=== PATIENT | female | born 1960 | race Caucasian/White ===

== ENCOUNTER 2022-02-21 09:14 | Outpatient (CLI) | payer OTHER, SELFPAY ==
[2022-02-21 12:40] LABS: Albumin* 4.5 g/dL (3.3-5.0); Chloride* 102 mmol/L (96-114)
[2022-02-21 12:41] LABS: Potassium* 4.4 mmol/L (3.6-5.1); Sodium* 138 mmol/L (135-149)
[2022-02-21 12:43] LABS: Alkaline Phosphatase* 102 U/L (40-150); Aspartate Amino Transferase* 20 U/L (12-35); Bilirubin Total* 0.4 mg/dL (0.1-1.5); Blood Urea Nitrogen* 18 mg/dL (7-30); Carbon Dioxide* 26 mmol/L (20-32); Cholesterol* 154 mg/dL (90-199); Creatinine* 0.7 mg/dL (0.5-1.5); Estimated Glomerular Filt Rate 100 ml/min; Glucose* 113 mg/dL (60-115); Total Protein* 7.7 g/dL (6.0-8.3); Triglycerides* 223 mg/dL (40-149)
[2022-02-21 12:44] LABS: Alanine Aminotransferase* 17 U/L (4-35); Calcium* 9.8 mg/dL (8.4-10.6); HDL Cholesterol* 49 mg/dL (>=50); LDL Cholesterol Calculated 60 mg/dL (<100)
[2022-02-21 12:57] LABS: Creatinine Urine 46.5 mg/dL
[2022-02-21 13:00] LABS: Microalbumin Creatinine Ratio 20 mg/g (0-30); Microalbumin Urine < 1 mg/dL
== END 2022-02-21 09:15 | disposition home or self-care (01) ==
PROVIDERS: PCP Physician Assistant Medical; Visit Provider Family Medicine
DX: Z01.419 Encounter for gynecological examination (general) (routine) without abnormal findings (principal); E66.01 Morbid (severe) obesity due to excess calories; E78.5 Hyperlipidemia, unspecified; I10 Essential (primary) hypertension; I25.10 Atherosclerotic heart disease of native coronary artery without angina pectoris; Z13.1 Encounter for screening for diabetes mellitus; Z68.41 Body mass index [BMI] 40.0-44.9, adult
CPT/HCPCS: 80053; 80061; 82043; 82570

== ENCOUNTER 2022-12-03 08:31 | Outpatient (CLI) | payer OTHER, SELFPAY | END 2022-12-03 08:32 | disposition home or self-care (01) | LOC: NFLDREF 12-04 18:48 | PROVIDERS: PCP Physician Assistant Medical; Referring Provider Physician Assistant Medical; Visit Provider Family Medicine | DX: E66.01 Morbid (severe) obesity due to excess calories (principal); E78.5 Hyperlipidemia, unspecified; I10 Essential (primary) hypertension; R73.01 Impaired fasting glucose; I25.10 Atherosclerotic heart disease of native coronary artery without angina pectoris; K76.9 Liver disease, unspecified; D37.3 Neoplasm of uncertain behavior of appendix; Z68.41 Body mass index [BMI] 40.0-44.9, adult | CPT/HCPCS: 80053; 80061; 82043; 82378; 82570; 82607 ==

== ENCOUNTER 2023-01-02 13:49 | Outpatient (CLI) | payer OTHER, SELFPAY | END 2023-01-02 13:50 | disposition home or self-care (01) | LOC: RAD 13:50 | PROVIDERS: PCP Family Medicine; Visit Provider Family Medicine | DX: R01.1 Cardiac murmur, unspecified (principal); I51.7 Cardiomegaly | CPT/HCPCS: 93306 ==

== ENCOUNTER 2023-02-26 11:17 | Outpatient (CLI) | payer OTHER, SELFPAY ==
--- NOTE | 2023-02-26 11:30 | CRLHL7_ITS ---
For Patients: As a result of the Century Cures Act, medical imaging exams and procedure reports are released immediately into your electronic medical record. You may view this report before your referring provider. If you have questions, please contact your health care provider. BILATERAL SCREENING MAMMOGRAM WITH COMPUTER-AIDED DETECTION TECHNIQUE: CC and MLO views were obtained. These mammographic images have been obtained using full-field digital technique. These mammographic images were interpreted with the benefit of computer-aided detection. COMPARISON FILM: 06/20/21, 04/22/20, 04/06/19. FINDINGS: There are scattered areas of fibroglandular density IMPRESSION: There is no radiographic evidence for malignancy. ASSESSMENT: BI-RADS Category 1: Negative RECOMMENDATION: Routine screening mammogram in 1 year. A lay language report of this examination will be provided to the patient. Dayday Hernandes M.D. Diagnostic Radiologist [email or web address] TIKA/Dictated by: Dayday Hernandes MD @ 02/26/2023 12:08:00 PM (Electronically Signed)
== END 2023-02-26 11:18 | disposition home or self-care (01) ==
LOC: MAMMO 11:18
PROVIDERS: PCP Family Medicine; Visit Provider Family Medicine
DX: Z12.31 Encounter for screening mammogram for malignant neoplasm of breast (principal)
CPT/HCPCS: 77067

== ENCOUNTER 2023-06-19 11:37 | Outpatient (CLI) | payer OTHER, SELFPAY | END 2023-06-19 11:38 | disposition home or self-care (01) | LOC: NFLDREF 06-20 09:26 | PROVIDERS: PCP Family Medicine; Referring Provider Family Medicine; Visit Provider Family Medicine | DX: D51.8 Other vitamin B12 deficiency anemias (principal) | CPT/HCPCS: 82607; 83540; 83550 ==

== ENCOUNTER 2023-10-24 08:49 | Outpatient (CLI) | payer BC, SELFPAY | END 2023-10-24 08:50 | disposition home or self-care (01) | LOC: NFLDREF 10-28 14:35 | PROVIDERS: PCP Family Medicine; Referring Provider Family Medicine; Visit Provider Surgery | DX: D37.3 Neoplasm of uncertain behavior of appendix (principal) | CPT/HCPCS: 82378 ==

== ENCOUNTER 2023-11-26 13:40 | Outpatient (CLI) | payer BC, SELFPAY ==
--- NOTE | 2023-11-26 14:00 | CRLHL7_ITS ---
For Patients: As a result of the Century Cures Act, medical imaging exams and procedure reports are released immediately into your electronic medical record. You may view this report before your referring provider. If you have questions, please contact your health care provider. Indication: FOLLOW UP FROM APPY SURG 1 YEAR AGO. TUMOR ON APPENDIX Technique: CT abdomen/pelvis with IV contrast, 126 mL Isovue 370 Comparison: CT abdomen/pelvis on October 08, 2022 Findings: Lower thorax: Trace bibasilar atelectatic changes; otherwise, unremarkable. Abdomen/pelvis: Nodular hepatic contour suggestive of cirrhosis with diffuse hepatic steatosis. No focal hepatic lesions. The gallbladder and biliary system are unremarkable. The spleen, pancreas, and right adrenal gland are unremarkable. Similar-appearing 1.8 centimeter left adrenal nodule that is stable compared to prior exam. The kidneys, ureters, and bladder are unremarkable in appearance. Redemonstration of nonspecific perinephric stranding, unchanged. The uterus and bilateral ovaries are unremarkable in appearance. No evidence of bowel obstruction or inflammation. Postsurgical changes of appendectomy. No cecal masses or lesions. Few colonic diverticula without CT evidence of acute diverticulitis. There are no pathologically enlarged lymph nodes throughout the abdomen or pelvis. No abdominal aortic aneurysm. Moderate calcific atherosclerosis of the aortoiliac system and its branches. Soft tissue/musculoskeletal: Diastasis recti. Healed midline abdominal incision. No acute fracture or malalignment. No suspicious osseous lesions. Postsurgical changes of left total hip arthroplasty. Impression: 1. Status post appendectomy. No cecal masses or lesions. 2. No pathologically enlarged lymph nodes throughout the abdomen or pelvis. 3. Additional incidental findings as detailed above, grossly unchanged compared to prior examination, to include an indeterminate left adrenal nodule for which further assessment with a nonemergent adrenal protocol CT or MRI is recommended if not previously performed. Please note that all CT scans at this facility use dose modulation, iterative reconstruction, and/or weight-based dosing when appropriate to reduce radiation dose to as low as reasonably achievable. Dictated by Santiago Cheatham MD @ 11/28/2023 2:01:20 PM (Electronically Signed)
[2023-11-26 14:31] LABS: Creatinine* 0.7 mg/dL (0.5-1.5); Estimated Glomerular Filt Rate 98 ml/min
== END 2023-11-26 13:41 | disposition home or self-care (01) ==
LOC: CT 13:41
PROVIDERS: PCP Family Medicine; Visit Provider Surgery
DX: D37.3 Neoplasm of uncertain behavior of appendix (principal)
CPT/HCPCS: 36415; 74177; 82565; Q9967

== ENCOUNTER 2023-12-09 14:51 | Outpatient (CLI) | payer BC, SELFPAY | END 2023-12-09 14:52 | disposition home or self-care (01) | PROVIDERS: PCP Family Medicine; Visit Provider Family Medicine | DX: D51.8 Other vitamin B12 deficiency anemias (principal); E78.5 Hyperlipidemia, unspecified; I10 Essential (primary) hypertension; R73.01 Impaired fasting glucose; K74.60 Unspecified cirrhosis of liver; E27.8 Other specified disorders of adrenal gland | CPT/HCPCS: 80053; 80061; 80074; 82043; 82570; 82607 ==

== ENCOUNTER 2023-12-19 12:57 | Outpatient (CLI) | payer BC, SELFPAY ==
--- NOTE | 2023-12-19 13:00 | CRLHL7_ITS ---
For Patients: As a result of the Century Cures Act, medical imaging exams and procedure reports are released immediately into your electronic medical record. You may view this report before your referring provider. If you have questions, please contact your health care provider. INDICATION: Left adrenal nodule. TECHNIQUE: Multiplanar imaging of the abdomen and pelvis was performed without and with 20 cc of Dotarem contrast material IV. COMPARISON: Abdomen/pelvis CT of 11/26/2023 FINDINGS: A left adrenal nodule measuring roughly 1.8 cm is again demonstrated. This lesion demonstrates signal loss on the [id number] T1-weighted images when compared to the in-phase T1-weighted images. This is consistent with the presence of microscopic fat and is typical of an adenoma. The right adrenal gland is normal. A fatty, cirrhotic liver is again demonstrated. No liver mass is apparent. No bile duct dilation is evident. The spleen, pancreas and kidneys appear to be within normal limits. No lymphadenopathy or free fluid is evident. No bowel abnormality is demonstrated. IMPRESSION: 1. 1.8 cm left adrenal adenoma. 2. Fatty, cirrhotic liver. Dictated by Arthur Aranda MD @ 12/21/2023 9:39:54 AM (Electronically Signed)
== END 2023-12-19 12:58 | disposition home or self-care (01) ==
LOC: MRI 12:58
PROVIDERS: PCP Family Medicine; Visit Provider Family Medicine
DX: E27.8 Other specified disorders of adrenal gland (principal); K76.0 Fatty (change of) liver, not elsewhere classified
CPT/HCPCS: 74183; A9575

== ENCOUNTER 2024-05-06 13:16 | Outpatient (CLI) | payer BC, SELFPAY ==
--- NOTE | 2024-05-06 13:20 | CRLHL7_ITS ---
For Patients: As a result of the Century Cures Act, medical imaging exams and procedure reports are released immediately into your electronic medical record. You may view this report before your referring provider. If you have questions, please contact your health care provider. BILATERAL SCREENING MAMMOGRAM WITH COMPUTER-AIDED DETECTION AND TOMOSYNTHESIS TECHNIQUE: CC and MLO views were obtained. These mammographic images have been obtained using full-field digital technique. These mammographic images were interpreted with the benefit of computer-aided detection. Breast Tomosynthesis was used in this interpretation. COMPARISON FILM: 02/26/23, 06/20/21, 04/22/20. FINDINGS: The breasts are almost entirely fatty. IMPRESSION: There is no radiographic evidence for malignancy. ASSESSMENT: BI-RADS Category 1: Negative RECOMMENDATION: Routine screening mammogram in 1 year. A lay language report of this examination will be provided to the patient. Dayday Hernandes M.D. Diagnostic Radiologist [email or web address] SP/Dictated by: Dayday Hernandes MD @ 05/07/2024 12:10:00 PM (Electronically Signed)
== END 2024-05-06 13:17 | disposition home or self-care (01) ==
LOC: MAMMO 13:17
PROVIDERS: PCP Family Medicine; Visit Provider Family Medicine
DX: Z12.31 Encounter for screening mammogram for malignant neoplasm of breast (principal)
CPT/HCPCS: 77063; 77067

== ENCOUNTER 2024-12-10 13:02 | Outpatient (CLI) | payer BC, SELFPAY | END 2024-12-10 13:03 | disposition home or self-care (01) | LOC: NFLDREF 12-13 15:25 | PROVIDERS: PCP Family Medicine; Referring Provider Family Medicine; Visit Provider Surgery | DX: E27.8 Other specified disorders of adrenal gland (principal) | CPT/HCPCS: 82378 ==

== ENCOUNTER 2024-12-16 12:38 | Outpatient (CLI) | payer BC, SELFPAY ==
--- NOTE | 2024-12-16 13:00 | CRLHL7_ITS ---
For Patients: As a result of the Century Cures Act, medical imaging exams and procedure reports are released immediately into your electronic medical record. You may view this report before your referring provider. If you have questions, please contact your health care provider. INDICATION: Adrenal mass, history of low-grade mucinous neoplasm of the appendix TECHNIQUE: CT abdomen and pelvis acquired with 130 cc Isovue 370 IV contrast. COMPARISON: MR abdomen 12/19/2023, CT abdomen and pelvis 11/26/2023 FINDINGS: Lower chest: Unremarkable. Liver: Similar nodular hepatic contour and relative hypertrophy of the left hepatic lobe, suggestive of underlying cirrhosis. Mild hepatic steatosis. No suspicious masses. Gallbladder and bile ducts: Unremarkable. No stones or inflammation. No biliary dilatation. Pancreas: Unremarkable. No mass or inflammation. Spleen: Top-normal spleen measuring 13 cm in craniocaudal dimension. No masses. Adrenal glands: Unchanged 1.7 cm left adrenal gland nodule previously characterized as an adenoma. Kidneys: Mild bilateral perinephric stranding. No suspicious masses, stones, or hydronephrosis. GI tract: Colonic diverticulosis. Normal in caliber. No sign of mass or inflammation. Prior appendectomy Vasculature: Abdominal aorta is normal in caliber. Moderate to severe atherosclerotic calcifications of the aorta and branch vasculature. 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 Stable prominent nonspecific mesenteric lymph node measuring 0.6 cm (2/73), adjacent to the cecum. Peritoneum/Abdominal Wall: Unremarkable. No sign of mass or infiltration. No free air or significant free fluid. Pelvis: Unremarkable. Bones: Left hip arthroplasty IMPRESSION: 1. Unchanged left adrenal gland nodule previously characterized as an adenoma. 2. Postsurgical changes of appendectomy without evidence of recurrence at the surgical margin. Stable prominent adjacent mesenteric lymph node is nonspecific. 3. 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 Cirrhotic nodular hepatic contour with mild hepatic steatosis. No suspicious hepatic lesions. Please note that all CT scans at this facility use dose modulation, iterative reconstruction, and/or weight-based dosing when appropriate to reduce radiation dose to as low as reasonably achievable. Dictated by Tsering Gibson MD @ 12/21/2024 11:40:48 AM (Electronically Signed)
[2024-12-16 13:31] LABS: Creatinine* 0.8 mg/dL (0.5-1.5); Estimated Glomerular Filt Rate 83 ml/min
== END 2024-12-16 12:39 | disposition home or self-care (01) ==
LOC: CT 12:39
PROVIDERS: PCP Family Medicine; Visit Provider Surgery
DX: E27.8 Other specified disorders of adrenal gland (principal); I74.5 Embolism and thrombosis of iliac artery; K76.0 Fatty (change of) liver, not elsewhere classified
CPT/HCPCS: 36415; 74177; 82565; Q9967

== ENCOUNTER 2025-03-24 12:33 | Outpatient (CLI) | payer BC, SELFPAY | END 2025-03-24 12:34 | disposition home or self-care (01) | LOC: NFLDREF 03-29 02:48 | PROVIDERS: PCP Family Medicine; Referring Provider Family Medicine; Visit Provider Family Medicine | DX: K74.60 Unspecified cirrhosis of liver (principal); E78.5 Hyperlipidemia, unspecified; D51.8 Other vitamin B12 deficiency anemias; I74.5 Embolism and thrombosis of iliac artery | CPT/HCPCS: 80053; 80061; 82043; 82570; 82607 ==